=== PATIENT | male | born 1940 | race Caucasian/White ===

== ENCOUNTER 2018-12-29 03:11 | Inpatient (IN) | payer OTHER, MEDICARE ==
[~2018-12-29] VITALS: Ht 165.1 cm; Wt 74.5 kg
[2018-12-29 03:39] LABS: PCO2 Arterial 57.3 mmHg (35-45); pH Blood Arterial 7.27 (7.35-7.45)
[2018-12-29 03:40] LABS: PO2 Arterial 205 mmHg (80-100)
[2018-12-29 03:53] LABS: BASOPHILS ABSOLUTE AUTO 0.02 K/mm3 (0.00-0.23); BASOPHILS PERCENT AUTO 0 % (0-2); EOSINOPHILS PERCENT AUTO 0 % (0-6); Hematocrit 47.7 % (37.0-53.0); Hemoglobin 15.2 g/dL (13.5-17.5); IMMATURE GRAN ABSOLUTE AUTO 0.17 K/mm3 (0.00-0.10); IMMATURE GRAN PERCENT AUTO 1 % (0-1); LYMPHOCYTES ABSOLUTE AUTO 0.56 K/mm3 (0.84-5.20); LYMPHOCYTES PERCENT AUTO 3 % (21-46); MONOCYTES ABSOLUTE AUTO 1.67 K/mm3 (0.16-1.47); MONOCYTES PERCENT AUTO 9 % (4-13); Mean Corpuscular HGB 29.4 pg (26.0-34.0); Mean Corpuscular HGB Conc 31.9 g/dL (31.5-36.5); Mean Corpuscular Volume 92 fL (80-100); Mean Platelet Volume 10.6 fL (9.1-12.4); NEUTROPHILS ABSOLUTE AUTO 15.63 K/mm3 (1.96-9.15); NEUTROPHILS PERCENT AUTO 87 % (41-73); Platelet Count 243 K/mm3 (150-400); RDW Standard Deviation 44.8 fL (35.1-46.3); Red Blood Cell Count 5.17 M/mm3 (4.30-5.90); White Blood Cell Count 18.05 K/mm3 (4.00-11.30)
[2018-12-29 04:07] LABS: Source, Urine Catheter
[2018-12-29 04:09] LABS: Bilirubin, Urine Neg (Neg); Blood, Urine 3+ (Neg); Glucose Qualitative, Urine Neg (Neg); Ketones, Urine Neg (Neg); Leukocyte Esterase, Urine Neg (Neg); Nitrite, Urine Neg (Neg); Protein, Urine 2+ (Neg); Urobilinogen, Urine NORM (Normal)
[2018-12-29 04:10] LABS: Alanine Aminotransfer (ALT/SGP 57 U/L (12-78); Albumin, Blood 3.7 g/dL (3.4-5.0); Albumin/Globulin Ratio 1.1 (0.8-1.8); Alk Phos 70 U/L (50-136); Anion Gap 7 mmol/L (6-16); Aspartate Aminotrans (AST/SGOT 46 U/L (12-37); Bilirubin, Total 0.4 mg/dL (0.1-1.0); Blood Urea Nitrogen 26 mg/dL (8-24); Bun/Creatinine Ratio 27.7 (12.0-20.0); CO2, Blood 30 mmol/L (21-32); Calcium, Blood 8.4 mg/dL (8.5-10.1); Chloride, Blood 95 mmol/L (98-108); Creatinine, Blood 0.94 mg/dL (0.60-1.20); Globulin, Blood 3.5 g/dL (2.2-4.0); Glomerular Filtration Rate >60 (60-); Glucose, Blood 191 mg/dL (70-99); Potassium, Blood 4.6 mmol/L (3.5-5.5); Sodium, Blood 132 mmol/L (136-145); Total Protein, Blood 7.2 g/dL (6.4-8.2); Troponin I 0.036 ng/mL (0.000-0.040)
[2018-12-29 04:10] LABS: Appearance, Urine Clear (Clear); Color, Urine Yellow (P-Yellow)
[2018-12-29 04:16] LABS: Bacteria Not Seen /hpf; Squamous Epithelial Cells Rare /hpf (Few); White Blood Cells, Urine Rare /hpf (0-5)
[2018-12-29] MEDS ORDERED: Hydrochloroth12.5 MG PO (05:50)
[2018-12-29] MEDS ORDERED: AMLO10 PO (05:50)
--- NOTE | 2018-12-29 07:27 | NUR ---
ASSUMED PT CARE/END OF SHIFT SUMMARY ASSUMED PT CARE FROM RILEY DOMINGUEZ. PT ARRIVED ON UNIT S/P CHEST TUBE PLACEMENT SECONDARY TO PNEUMOTHORAX TO LEFT LOBE. PT INTUBATED AND SEDATED WITH PROPOFOL AT 15MCG/KG/MIN UPON ARRIVAL; INCREASED TO 25MCG/MIN. VENT SETTINGS: AC 14, TV 450, PEEP 5, FIO2 50%; NON-PRODUCTIVE COUGH. CHEST TUBE TO -20CM. CONTINUOUS BUBBLING NOTED TO SUCTION CHAMBER, NO FLUCTUATION NOTED TO WATER SEAL CHAMBER, NO CREPITUS NOTED AROUND INSERTION SITE; DRESSING IS CDI AND CHEST TUBE CANISTER IS SECURED/TAPED TO FLOOR. PT HAS BEEN NOTED TO HAVE FREQUENT ECTOPI; BIGEMINY, PVC'S, AND PAC'S; HR 90-100'S. FREEMAN TEMP IN PLACE; AFEBRILE 97.0. PATENT AND DRAINING TO GRAVITY; CLEAR, TEE COLORED URINE. FAMILY AT BEDSIDE AND VERY EMOTIONAL. REPORT HANDED OFF TO RILEY BURT.
--- NOTE | 2018-12-29 08:15 | NUR ---
ASSESSMENT- PT SEDATED WITH PROPOFOL AT 30 MCG/KG/MIN, COUGHING, RESPIRATORY RATE INCREASED. REACHES FOR ETT WHEN REPOSITIONED AND UNRESTRAINED, NO RESPONSE TO COMMANDS. INCREASED PROPOFOL FOR SEDATION/VENT TOLERANCE TO 40 MCG/KG/MIN WITH IMPROVEMENT. OGT PLACED WITH AIR BOLUS AUSCULTATED OVER ABDOMEN, RETURN OF YELLOW BILE DRAINAGE, TO LIS. ABDOMEN SOFT. NSR-ST WITH PACS, PVCS. SBP 90-110'S. 2 PIV INTACT, 3RD SITE PLACED. NS AT 75 CC/HR. LEFT CHEST INTACT TO A[facility] DRAINAGE, NO AIR LEAK NOTED, DDI, NO CREPITUS FELT. UO VIA FREEMAN ADEQUATE. CLEAR YELLOW URINE. DR. SIERRA HERE. FAMILY AT BEDSIDE, UPDATED AND QUESTIONS ANSWERED. BILATERAL WRIST RESTRAINTS FOR SAFETY.
--- NOTE | 2018-12-29 08:52 | NUR ---
This student nurse has permission to access patient information.
--- NOTE | 2018-12-29 08:56 | NUR ---
DR. GALVAN HERE-UDPATED
--- NOTE | 2018-12-29 11:25 | NUR ---
DR. GALVAN AT BEDSIDE, DISCUSSED PLAN OF CARE WITH PT'S FAMILY. PROPOFOL ON HOLD-PT AWAKE, ABLE TO OPEN EYES, FOLLOW BRIEF COMMANDS. CHANGED TO PS 10/PEEP 5, TIDAL VOLUNES 300'S, RR 40 BPM. PT UNCOMFORTABLE, ATTEMPTING TO SIT UP. EXPLAINED PLAN OF CARE. PT EXTUBATED TO NASAL CANNULA, RESP RATE 50 BPM, STATES SOB. ABLE TO ANSWER QUESTIONS. C/O "ALL OVER PAIN" RX WITH FENTANYL. CHANGED TO BIPAP 02/10, RESP RATE NOW 34 BPM, SINUS TACH DECREASED FROM 110'S TO 104. RESTRAINTS OFF. LUNGS WITH RHONCHI T/O. CHEST TUBE INTACT TO ATRIUM, NO AIR LEAK INDICATED
--- NOTE | 2018-12-29 12:52 | NUR ---
PT C/O NEEDING TO GET UP, EXPLAINED PLAN OF CARE, PETE. FAMILY AT BEDSIDE, UPDATED ON CONDITION. PT REPOSITIONED, SLEEPING NOW. RESP RATE 26 BPM, TOLERATING BIPAP
--- NOTE | 2018-12-29 13:31 | NUR ---
AWAKE, ALERT, COOPERATIVE. TOOK BIPAP OFF, TOLERATING NASAL CANNULA. TALKATIVE. ENCOURAGED TO REST. C/O SEVERE PAIN LEFT CHEST TUBE SITE-REPOSITIONED AND PAIN RX GIVEN WITH IMPROVEMENT.
--- NOTE | 2018-12-29 14:05 | NUR ---
Echocardiogram completed.
--- NOTE | 2018-12-29 14:37 | NUR ---
C/O PAIN LEFT CHEST-UNRELIEVED BY IV FENTANYL. NOTIFIED DR. GALVAN-PO RX GIVEN. PT SITTING UP IN BED, TALKATIVE WITH FAMILY. TACHYPNEIC BUT STATES RESPIRATIONS BETTER. ENCOURAGED TO REST. HEARTRATE 100'S
--- NOTE | 2018-12-29 14:42 | NUR ---
BIPAP ON PER REQUEST, PT TRYING TO SLEEP NOW.
[2018-12-29 16:20] LABS: Anion Gap 8 mmol/L (6-16); Blood Urea Nitrogen 21 mg/dL (8-24); Bun/Creatinine Ratio 34.1 (12.0-20.0); CO2, Blood 26 mmol/L (21-32); Calcium, Blood 8.6 mg/dL (8.5-10.1); Chloride, Blood 100 mmol/L (98-108); Creatinine, Blood 0.62 mg/dL (0.60-1.20); Glomerular Filtration Rate >60 (60-); Glucose, Blood 147 mg/dL (70-99); Magnesium, Blood 2.4 mg/dL (1.6-2.4); Phosphorus, Blood 2.8 mg/dL (2.5-4.9); Potassium, Blood 4.5 mmol/L (3.5-5.5); Sodium, Blood 134 mmol/L (136-145)
[2018-12-29 16:32] LABS: PCO2 Arterial 40.7 mmHg (35-45); PO2 Arterial 87.9 mmHg (80-100); pH Blood Arterial 7.45 (7.35-7.45)
--- NOTE | 2018-12-29 17:01 | NUR ---
LABS CALLED TO DR. GALVAN-WILL REVIEW. PT RESTING WITHOUT COMPLAINTS. FAMILY AT BEDSIDE. VSS, RESPIRATORY RATE 26 BPM. ABG STABLE.NS AT 75 CC/HR TO FINISH LITER. UO GOOD VIA FREEMAN
--- NOTE | 2018-12-29 17:52 | NUR ---
PT AWAKE, REPOSITIONED, ASSISTED WITH MOVING. DENIES PAIN. CHANGED TO NASAL CANNULA. RESP RATE AT 32 BPM, ST 90'S
--- NOTE | 2018-12-29 20:02 | NUR ---
ASSUMED CARE RECEIVED REPORT FROM RILEY BURT. PT IS LYING IN BED ASLEEP, SLIGHTLY TACHYPNEIC WITH A RATE OF 24. BEFORE SLEEP, PT WAS ALERT AND ORIENTED X 4. HE IS GETTING 4 LPM OF O2 VIA NC WITH SAT'S IN THE UPPER 90'S. HE HAS A CHEST TUBE IN HIS LEFT PLEURAL SPACE, THAT HAS TIDLING AND IS HOOKED UP TO SUCTION. THERE IS NO AIR LEAK PRESENT, AND THE SITE AT THE LEFT CHEST WALL IS CDI. HE ALSO HAS A FREEMAN THAT IS PATENT AND HANGING TO GRAVITY. BED IS LOW AND LOCKED. CALL LIGHT WITHIN REACH. AT BEDSIDE.
--- NOTE | 2018-12-29 22:58 | NUR ---
CHEST TUBE AIR LEAK AFTER WALKING IN THE ROOM TO MEDICATE PATIENT FOR PAIN, HE STATES HE HAS HAD A COUGHING FIT THAT HAD CAUSED SOME PAIN. I NOTICED ON THE CHEST TUBE THERE WAS AN AIR LEAK IN THE WATER SEAL CHAMBER, THAT WAS NOT PRESENT AT THE START OF SHIFT. WE REINFORCED THE TUBE CONNECTION, BUT THAT DID NOT CHANGE ANYTHING, BESIDES IMPROVE THE TIDELING. THEN WE STERILELY REDRESSED THE SITE OF INSERTION. THE SITE LOOKED CDI/WNL, NO SIGNS OF CREPITUS IN THE SURROUNDING AREA. AFTER COMPLETION OF REDRESSING THE SITE, THERE WAS STILL NO CHANGE IN THE WATER SEAL CHAMBER. PT HAS MAINTAINED SATS ON THE NC, AND STATES THAT HIS WORK OF BREATHING HAS DECREASED SINCE EARLIER IN THE DAY, AND STATES THAT HE FEELS MUCH BETTER. WILL CONTINUE TO MONITOR AND PASS ON TO DAY SHIFT.
[2018-12-30 03:22] LABS: Hematocrit 44.2 % (37.0-53.0); Hemoglobin 14.5 g/dL (13.5-17.5); Mean Corpuscular HGB 29.2 pg (26.0-34.0); Mean Corpuscular HGB Conc 32.8 g/dL (31.5-36.5); Mean Platelet Volume 10.4 fL (9.1-12.4); Platelet Count 196 K/mm3 (150-400); RDW Coefficient Variation 13.2 % (11.7-14.2); RDW Standard Deviation 43.2 fL (35.1-46.3); Red Blood Cell Count 4.97 M/mm3 (4.30-5.90); White Blood Cell Count 15.78 K/mm3 (4.00-11.30)
[2018-12-30 03:29] LABS: Mean Corpuscular Volume 89 fL (80-100)
[2018-12-30 03:42] LABS: Alanine Aminotransfer (ALT/SGP 48 U/L (12-78); Albumin, Blood 3.2 g/dL (3.4-5.0); Albumin/Globulin Ratio 1.1 (0.8-1.8); Alk Phos 59 U/L (50-136); Anion Gap 3 mmol/L (6-16); Aspartate Aminotrans (AST/SGOT 29 U/L (12-37); Bilirubin, Total 0.7 mg/dL (0.1-1.0); Blood Urea Nitrogen 15 mg/dL (8-24); Bun/Creatinine Ratio 23.3 (12.0-20.0); CO2, Blood 31 mmol/L (21-32); Calcium, Blood 8.4 mg/dL (8.5-10.1); Chloride, Blood 102 mmol/L (98-108); Creatinine, Blood 0.64 mg/dL (0.60-1.20); Globulin, Blood 2.9 g/dL (2.2-4.0); Glomerular Filtration Rate >60 (60-); Glucose, Blood 144 mg/dL (70-99); Potassium, Blood 4.6 mmol/L (3.5-5.5); Sodium, Blood 136 mmol/L (136-145); Total Protein, Blood 6.1 g/dL (6.4-8.2)
--- NOTE | 2018-12-30 06:38 | NUR ---
SHIFT SUMMARY PT SLEPT MAJORITY OF NIGHT. HE IS ON 4L NC, AND HAS BIPAP NEEDED FOR INCREASED WORK OF BREATHING, SOB, AND LOW O2 SATS. HAS NOT NEEDED IT ALL SHIFT. SAT'S MAINTAINED IN 93-95% RANGE. HE HAS A CHEST TUBE IN THE LEFT LATERAL THORAX, THAT STARTED SHIFT TIDELING WITH NO BUBLING IN WATER SEAL CHAMBER, THEN FOR MAJORITY OF SHIFT HAS HAD BUBBLING IN THE WATER SEAL CHAMBER (SEE PREVIOUS NOTE FOR DETAILS). PT HAD MINIMAL SEROSANGUINOUS DRAINAGE. PT HAD A FREEMAN THAT WAS PATENT AND DRAINED URINE. NO GTTPS. HE HAS BEEN SIPPING CLEAR LIQUIDS WELL. PT HAS HAD PAIN AT THE CHEST TUBE SITE, WELL IN HIS ABDOMEN. BED LOW AND LOCKED. NO BM OVER NIGHT. CALL LIGHT WITHIN REACH.
--- NOTE | 2018-12-30 07:15 | NUR ---
START OF SHIFT NOTE: RECEIVED REPORT FROM ZAHRA RAYMUNDO RN, ASSUMED CARE, PATIENT IS AWAKE, SITTING UP IN BED, ALERT AND ORIENTED, LUNG SOUNDS DIMINISHED AND COARSE, CHEST TUBE IN LEFT LUNG, BUBBLING IN AIR SEAL NOTED, SEE PAULINO NOTES, AIR LEAK APPEARS TO COME AND GO WITH PATIENT COUGHING, NSR WITH HR IN 90'S, PATIENT IS ON CLEAR LIQUID DIET, BOWEL TONES HYPOACTIVE, PATIENT HAS FREEMAN CATHETER WITH TEMP PROBE, PEDAL PULSES STRONG BILATERAL, PATIENT IS AFEBRILE AND DENIES PAIN WHILE SITTING, HOWEVER, REPORTS THAT PAIN LEVEL GOES TO 3/10 WHEN HE HAS TO COUGH, AT BEDSIDE, CALL LIGHT IN REACH, WILL CONTINUE TO MONITOR.
--- NOTE | 2018-12-30 08:42 | NUR ---
DR. TOBIN IN TO SEE PATIENT, NO NEW ORDERS RECEIVED, PATIENT IS EATING BREAKFAST WITH GOOD APPETITE, NO PROBLEM SWALLOWING AT THIS TIME, AT BEDSIDE, CALL LIGHT IN REACH, WILL CONTINUE TO MONITOR.
--- NOTE | 2018-12-30 09:36 | NUR ---
PATIENT HAS FREQUENT COUGHING SPELLS, AND REPORTS THAT IT HAS BECOME HARDER TO BREATH.
--- NOTE | 2018-12-30 10:24 | NUR ---
DR. BURCH NOTIFIED THAT PATIENT IS BREATHING MORE LABORED, NO NEW ORDERS RECEIVED, WILL SEE PATIENT SHORTLY, RT NOTIFIED, WILL COME GIVE BREATHING TREATMENT, CALL LIGHT IN REACH, WILL CONTINUE TO MONITOR.
--- NOTE | 2018-12-30 11:50 | NUR ---
ATTEMPTED TO GIVE REPORT TO RILEY MIRANDA, ON MEDICAL FLOOR, SHE WILL CALL BACK, SHE IS DOING DISCHARGE AT THIS TIME.
--- NOTE | 2018-12-30 12:30 | NUR ---
PATIENT TO CT SCAN, WITH MOBILE SUCTION AND MONITOR.
--- NOTE | 2018-12-30 13:10 | NUR ---
PATIENT BACK TO ROOM FROM CT, POSITIONED FOR COMFORT, PLACED BACK ON MONITOR AND SUCTION BACK TO WALL SUCTION AND ATRIUM TAPED TO FLOOR.
--- NOTE | 2018-12-30 14:18 | NUR ---
PATIENT IS SLEEPING SOUNDLY AT THIS TIME, VSS, CALL LIGHT IN REACH, WILL CONTINUE TO MONITOR.
--- NOTE | 2018-12-30 15:09 | NUR ---
met with family briefly. to review advance care planning. will return to review with .
--- NOTE | 2018-12-30 15:47 | NUR ---
NOTIFIED BARRY BANUELOS RT, THAT PATIENT HAS CHEST THERAPY ORDERED, ALSO ABBEY HOLLOWAY NOTIFIED.
--- NOTE | 2018-12-30 17:00 | NUR ---
PATIENT RECEIVED ORDERED PERCUSSION CHEST PHYSIOTHERAPY FROM RT, TOLERATED WELL, HOWEVER, AFTER THERAPY ENDED PATIENT WAS OOZING SLIGHTLY FROM INSERTION SITE, DR. BURCH IN TO SEE PATIENT AND CHECK SITE, OLD DRESSING REMOVED, INSERTION SITE SHOWED NO S/S OF INFECTION, DISLODGEMENT, CREPITUS PALPABLE AROUND INSERTION SITE, NEW DRESSING APPLIED, PATIENT TOLERATED WELL, ALSO RECEIVED 50 MCG OF FENTANYL FOR 5/10 PAIN, GOWN CHANGED, SPONGE BATH, PATIENT REPOSITIONED AND NEW HENRY PLACED, AND DAUGHTER AT BEDSIDE, PATIENT EATING DINNER, CALL LIGHT IN REACH, WILL CONTINUE TO MONITOR.
--- NOTE | 2018-12-30 17:40 | NUR ---
SHIFT SUMMARY NOTE: NO ACUTE EVENTS DURING THIS SHIFT, PATIENT WAS AFEBRILE THIS MORNING AND NOW HAS A LOW GRADE TEMP OF 99.5, DR. BURCH AWARE, PATIENT HAS TEMP FREEMAN IN, WITH GOOD URINE OUTPUT, PATIENT IS ALERT AND ORIENTED, HAS FREQUENT PRODUCTIVE COUGHING SPELLS, BUT REPORTED INCREASED WORK OF BREATHING EARLY ON DURING SHIFT, CT SCAN ORDERED AND MUCOUS PLUG IDENTIFIED, PATIENT HAS PERCUSSION ORDER THREE TIMES A DAY, AND RECEIVED FIRST TREATMENT THIS AFTERNOON, DRESSING AROUND CHEST TUBE INSERTION SITE WAS CHANGED D/T LEAKAGE, DR. BURCH AWARE, AM LOVENOX TOMORROW TO BE HELD, PATIENT RECEIVED FENTANYL 50 MCG IV TWICE, ONCE BEFORE CT SCAN AND SECOND RIGHT AFTER PERCUSSION TREATMENT, PATIENT NOW ON SOFT DIET, EATING WITH GOOD APPETITE, AND DAUGHTER AT BEDSIDE, FOR DETAILS SEE SHIFT ASSESSMENT DOCUMENTATION AND NURSES NOTES, CALL LIGHT IN REACH, WILL CONTINUE TO MONITOR, AND GIVE REPORT TO ONCOMING GLASS MAKER.
--- NOTE | 2018-12-30 19:00 | NUR ---
ASSUMED CARE OF PT, BEDSIDE REPORT RECEIVED. PT IS RESTING QUIETLY RECLINING IN BED AND VISITING WITH FAMILY AT BEDSIDE. HE IS ALERT AND ORIENTED X 3, DENIES CP/PRESSURE, DENIES INCREASING SOB/DYSPNEA ALTHOUGH STATES THAT HIS BREATHING, WHILE IT DOES NOT HURT, "IT'S ANNOYING." HE DOES STATE THAT HE HAS 4/10 SHARP PAIN AT CHEST TUBE INSERTION SITE TO LEFT CHEST THAT WORSENS WITH CHEST PHYSIOTHERAPY AND HE STATES THAT HE IS SCHEDULED FOR 1 MORE SESSION TONIGHT. CHEST TUBE DRESSING IS CDI, SMALL AMOUNT OF CREPITUS IS NOTED AT SUPERIOR ASPECT OF DRESSING, PER DAY SHIFT RN, THIS HAS BEEN STABLE, GENTLE BUBBLING IS NOTED IN PLEUROVAC, SANGUINOUS DRAINAGE IS NOTED, WILL MONITOR. HE IS MAINTAINING SATS WITH OXYGEN AT 4 L/MIN VIA NC, NO VISIBLE INCREASED WORK OF BREATHING WHILE AT REST. HEART RATE IRREGULAR AT THIS TIME SINUS WITH BOTH PVCS AND PACS NOTED, PRESSURE MAINTAINING, PULSES ARE FULL X 4, SKIN IS PWD, TRACE ANKLE EDEMA IS NOTED. ABD SOFT, HYPOACTIVE BOWEL TONEX X4, NO GRIMACING WITH LIGHT PALPATION, DENIES N/V. TEMP PROBE FREEMAN REMAINS IN PLACE, READING TEMP 100.2 AT THIS TIME, PT DOES NOT FEEL FEBRILE TO THE TOUCH, TEMPORAL TEMP 98.1 AT THIS TIME, WILL MONITOR.
--- NOTE | 2018-12-30 21:47 | NUR ---
WITH HOLDING CPT, PT HAS BLOOD IN CHEST TUBING
[2018-12-31 03:09] LABS: BASOPHILS ABSOLUTE AUTO 0.02 K/mm3 (0.00-0.23); BASOPHILS PERCENT AUTO 0 % (0-2); EOSINOPHILS ABSOLUTE AUTO 0.01 K/mm3 (0.00-0.68); EOSINOPHILS PERCENT AUTO 0 % (0-6); Hematocrit 42.1 % (37.0-53.0); Hemoglobin 13.6 g/dL (13.5-17.5); IMMATURE GRAN ABSOLUTE AUTO 0.07 K/mm3 (0.00-0.10); IMMATURE GRAN PERCENT AUTO 0 % (0-1); LYMPHOCYTES ABSOLUTE AUTO 0.78 K/mm3 (0.84-5.20); LYMPHOCYTES PERCENT AUTO 5 % (21-46); MONOCYTES ABSOLUTE AUTO 1.58 K/mm3 (0.16-1.47); MONOCYTES PERCENT AUTO 9 % (4-13); Mean Corpuscular HGB 29.3 pg (26.0-34.0); Mean Corpuscular HGB Conc 32.3 g/dL (31.5-36.5); Mean Corpuscular Volume 91 fL (80-100); Mean Platelet Volume 10.4 fL (9.1-12.4); NEUTROPHILS ABSOLUTE AUTO 14.97 K/mm3 (1.96-9.15); NEUTROPHILS PERCENT AUTO 86 % (41-73); Platelet Count 188 K/mm3 (150-400); RDW Coefficient Variation 13.2 % (11.7-14.2); RDW Standard Deviation 44.2 fL (35.1-46.3); Red Blood Cell Count 4.64 M/mm3 (4.30-5.90); White Blood Cell Count 17.43 K/mm3 (4.00-11.30)
[2018-12-31 03:26] LABS: Anion Gap 4 mmol/L (6-16); Blood Urea Nitrogen 23 mg/dL (8-24); Bun/Creatinine Ratio 37.2 (12.0-20.0); CO2, Blood 30 mmol/L (21-32); Calcium, Blood 8.1 mg/dL (8.5-10.1); Chloride, Blood 103 mmol/L (98-108); Creatinine, Blood 0.62 mg/dL (0.60-1.20); Glomerular Filtration Rate >60 (60-); Glucose, Blood 171 mg/dL (70-99); Potassium, Blood 4.7 mmol/L (3.5-5.5); Sodium, Blood 137 mmol/L (136-145)
--- NOTE | 2018-12-31 06:20 | NUR ---
DYSPNEA, HYPOXIA [phone] CALLED TO ROOM FOR INCREASED DIFFICULTY BREATHING FOLLOWING PROLONGED EPISODE OF COUGHING. PT IS NOTED SITTING UPRIGHT IN TRIPOD POSITION IN BED WITH MARKED INCREASE IN WORK OF BREATHING. RESP RATE UPPER 30S ON ARRIVAL, EXP WHEEZES ARE NOTED TO RIGHT, ABSENT LUNG SOUNDS ON LEFT, CHEST TUBE IS NO LONGER FLUCTUATING WITH RESPIRATIONS, SMALL AMOUNT OF BLEEDING IS NOTED FROM UNDER DRESSING AT INSERTION, PT OXYGEN SATURATION IS NOTED MID 80S AND DECREASING. NASAL CANNULA IS IN PLACE ON ARRIVAL TO ROOM AND RT IS AT BEDSIDE, FLOW RATE INCREASED TO 4 L/MIN VIA NC, SATS CONTINUE TO DECLINE, CHANGED TO OXYMIZER MASK AT 15 L/MIN AND SATS INITIALLY STABILIZE HOWEVER THEN CONTINUE TO DECLINE, NONREBREATHER MASK APPLIED WITH OXYGEN AT 15 L/MIN, SATS INITIALLY INCREASE TO 89-90% HOWEVER BEGIN TO DECLINE, AM CXR DONE AND CALL PLACED TO DR BURCH. ORDERS RECEIVED FOR HIGH FLOW OXYGEN AND STAT READ ON CXR. PT SATS BEGIN TO IMPROVE ON HIGH FLOW OXYGEN UP TO 90% DR BURCH NOTIFIED OF CXR REPORT, ORDERS RECEIVED TO PLACE CHEST TUBE TO WATER SEAL AND TITRATE OXYGEN DOWN TOLERATED, PT SATS AT THIS TIME ARE LOW 90S AND CONTINUE TO IMPROVE. PT STATES THAT HIS BREATHING FEELS MUCH IMPROVED. SPOUSE REMAINS AT BEDSIDE.
--- NOTE | 2018-12-31 07:10 | NUR ---
START OF SHIFT NOTE: RECEIVED REPORT FROM SERENITY BETANCOURT, RN, ASSUMED CARE, PATIENT IS AWAKE, ALERT AND ORIENTED, ON HIFLO 30L/MIN, CHEST TUBE TO WATER SEAL AT 0620 THIS MORNING, NSR/ST WITH KELLE IN 90'S, SBP'S IN UPPER 110'S TO 140'S, O2 SATURATION IN MID TO UPPER 90'S, BOWEL TONES HYPOATIVE, TEMP FREEMAN IN PLACE WITH GOOD URINE OUTPUT, PATIENT IS ABLE TO REPOSITION SELF IN BED, AT BEDSIDE, NOC SHIFT REPORTED THAT RUBEN RT, REFUSED TO DO PERCUSSION ORDERED BY DR. BURCH, AM RT, BERTA, NOTIFIED, WILL DO PERCUSSION THIS MORNING, PATIENT DENIES PAIN, AFEBRILE, CALL LIGHT IN REACH, WILL CONTINUE TO MONITOR.
--- NOTE | 2018-12-31 07:42 | NUR ---
PATIENT WAS PREMEDICATED WITH FENTANYL 50 MCG FOR PERCUSSION SESSION, RT IN TO DO CHEST PHYSIOTHERAPY, PATIENT TOLERATING WELL, O2 SATS IN UPPER 90'S, BREAKFAST GIVEN, CALL LIGHT IN REACH, WILL CONTINUE TO MONITOR.
--- NOTE | 2018-12-31 08:29 | NUR ---
IN TO SEE PATIENT, NO NEW ORDERS RECEIVED.
--- NOTE | 2018-12-31 08:36 | NUR ---
DR. GARCIA IN TO SEE PATIENT, UPDATE PROVIDED, NEW ORDERS RECEIVED.
--- NOTE | 2018-12-31 10:08 | NUR ---
PATIENT CONTINUES ON WATER SEAL FOR CHEST TUBE, PATIENT UP TO CHAIR WITH 2 ASSIST, C/O SLIGHT "WOOZINESS", BUT RESOLVED QUICK, PATIENT ENCOURAGED TO USE FLUTTER VALVE, CALL LIGHT IN REACH, WILL CONTINUE TO MONITOR.
--- NOTE | 2018-12-31 11:30 | NUR ---
PATIENT RETURNED TO BED AFTER ABOUT TWO HOURS UP IN CHAIR, PATIENT TOLERATED FAIR, AMBULATED FROM CHAIR TO BED WITH WALKER AND TWO ASSIST, C/O SOB WITH THIS EXERTION, PLACED BRIEFLY ON NRB AT 15L, REMAINS ON HIFLO AT 50 % 30L/MIN, DAUGHTER AT BEDSIDE, CALL LIGHT IN REACH, WILL CONTINUE TO MONITOR.
--- NOTE | 2018-12-31 14:00 | NUR ---
PATIENT ATTEMPTED TO HAVE BOWEL MOVEMENT, HAD NOT GONE FOR A FEW DAYS, UNABLE TO GO EXCEPT FOR SOME GAS, DR. BURCH NOTIFIED, NEW ORDERS RECEIVED.
--- NOTE | 2018-12-31 17:10 | NUR ---
Clinical Visit: Pt sitting up in bed. He has a dinner tray in front of him, but he states that he is not hungry. He believes that the hospital gives him too much food. and daughter at bedside, both report that he looks better than he had before. Denies pain, nausea at this time. He is slightly short of breath with airvo in place, but able to speak 4-5 words at a time. He recovers his breath easily. He feels much better after having a bowel movement. He states that he "put it off" due to humiliation related to hospital care. He is joking with his family and making them laugh. No significant concerns at this time, other than missing his dogs. Sruthi reports that pt is clearing mucus plugging and improving. No concerns. Will remain available.
--- NOTE | 2018-12-31 17:38 | NUR ---
SHIFT SUMMARY REPORT: NO ACUTE EVENTS DURING THIS SHIFT, PATIENT CONTINUES ON HIFLO 35 L/MIN WITH 35 % FiO2, RECEIVED CHEST PHYSIOTHERAPY PERCUSSION TWICE DURING THIS SHIFT, WAS UP TO CHAIR FOR ABOUT 2 HOURS THIS MORNING, ALSO RECEIVES ACETYLCYSTENE VIA INHALER QUID, PATIENT IS STARTING TO COUGH UP THICK STICKY SPUTUM, USES FLUTTER VALVE APPROPRIATELY, CHEST TUBE TO WATER SEAL, AND CHEST XRAY SHOWS LEFT LUNG FULLY INFLATED, POSSIBLE REMOVAL TOMORROW, PATIENT IS ALERT AND ORIENTED, SR/ST, HR IN 90'S SBP'S FROM 110'S TO 160'S DEPENDING ON ACTIVITY AND WORK OF BREATHING, PATIENT ALSO HAS NRB MASK AT BEDSIDE TO USE AFTER COUGHING SPELLS, O2 SATURATION IS CONSISTENTLY BETWEEN 91 AND 95 %, EATING WITH FAIRLY GOOD APPETITE, HAD ONE MEDIUM SOFT BM DURING THIS SHIFT, TEMP FREEMAN CATHETER REMAINS IN PLACE WITH GOOD URINE OUTPUT, FOR DETAILS SEE SHIFT ASSESSMENT DOCUMENTATION AND NURSES NOTES, CALL LIGHT IN REACH, WILL CONTINUE TO MONITOR AND GIVE REPORT TO ONCOMING ENGRAVER AUTOMATIC.
--- NOTE | 2018-12-31 22:16 | NUR ---
Sevier of Care: Care assumed at 1900hr. Patient alert and oriented x4, sitting upright in bed, visiting with family. Denies pain or discomfort. Denies dyspnea/SOB while at rest. C/o mild SOB with activity in bed, but quickly recovers with rest. Currently on Airvo NC, at 35L/min, 35% FiO2, O2-92-94%. Chest tube to lt lateral chest wall, to water seal. No tidaling noted, no air leak noted. Small amounts of serosanguineous drainage noted in tube. Chest tube insertion site/dressing clean, dry, and intact. Bilateral peripheral IV's patent and intact, SL at this time. Will continue to monitor for pain, safety, comfort.
[2019-01-01 03:32] LABS: BASOPHILS ABSOLUTE AUTO 0.01 K/mm3 (0.00-0.23); BASOPHILS PERCENT AUTO 0 % (0-2); EOSINOPHILS ABSOLUTE AUTO 0.01 K/mm3 (0.00-0.68); EOSINOPHILS PERCENT AUTO 0 % (0-6); Hemoglobin 13.4 g/dL (13.5-17.5); IMMATURE GRAN ABSOLUTE AUTO 0.11 K/mm3 (0.00-0.10); IMMATURE GRAN PERCENT AUTO 1 % (0-1); LYMPHOCYTES ABSOLUTE AUTO 0.85 K/mm3 (0.84-5.20); LYMPHOCYTES PERCENT AUTO 6 % (21-46); MONOCYTES ABSOLUTE AUTO 1.01 K/mm3 (0.16-1.47); MONOCYTES PERCENT AUTO 7 % (4-13); Mean Corpuscular HGB 28.7 pg (26.0-34.0); Mean Corpuscular HGB Conc 31.9 g/dL (31.5-36.5); Mean Corpuscular Volume 90 fL (80-100); Mean Platelet Volume 10.7 fL (9.1-12.4); NEUTROPHILS PERCENT AUTO 87 % (41-73); Platelet Count 177 K/mm3 (150-400); RDW Coefficient Variation 13.2 % (11.7-14.2); RDW Standard Deviation 43.8 fL (35.1-46.3); Red Blood Cell Count 4.67 M/mm3 (4.30-5.90); White Blood Cell Count 15.29 K/mm3 (4.00-11.30)
[2019-01-01 03:54] LABS: Anion Gap 4 mmol/L (6-16); Blood Urea Nitrogen 24 mg/dL (8-24); Bun/Creatinine Ratio 41.6 (12.0-20.0); CO2, Blood 30 mmol/L (21-32); Calcium, Blood 8.3 mg/dL (8.5-10.1); Chloride, Blood 102 mmol/L (98-108); Creatinine, Blood 0.58 mg/dL (0.60-1.20); Glomerular Filtration Rate >60 (60-); Glucose, Blood 167 mg/dL (70-99); Potassium, Blood 5.1 mmol/L (3.5-5.5); Sodium, Blood 136 mmol/L (136-145)
[2019-01-01 05:22] LABS: PCO2 Arterial 46.7 mmHg (35-45); PO2 Arterial 68.5 mmHg (80-100); pH Blood Arterial 7.45 (7.35-7.45)
--- NOTE | 2019-01-01 06:39 | NUR ---
Shift Summary: Patient slept off/on throughout shift. Occasional congested cough, not productive early in shift but then began to produce moderate amounts of thick yellow sputum. Patient c/o mild SOB with positioning in bed, or after coughing, but quickly recovers with rest. Continued on Airvo at 35LPM/35% FiO2 throughout majority of shift, O2-92-96%. Airvo turned up to 40LPM/35% FiO2 late this shift following coughing and c/o SOB. Then found that patient's Airvo tubing had came disconnected, quickly recovered after re-connecting tubing. O2% remained 89-94%, while tubing disconnected. Chest tube to lt lateral wall remains wnl. Tidaling began at approx 0000hr after repositioning and persisted throughout remainder of shift. Chest tube site remains c/d/i, no s/s crepitus noted. Only 20ml serosanguineous drainage noted from chest tube throughout shift. Call light in reach, makes needs known. Will continue to monitor until report to day shift RN.
--- NOTE | 2019-01-01 07:15 | NUR ---
START OF SHIFT NOTE: RECEIVED REPORT FROM RILEY MASON, ASSUMED CARE, PATIENT IS AWAKE AND ALERT AND ORIENTED, CONTINUES ON HIFLO AT 40 L/MIN 36 % FiO2, PATIENT IS SATING AT 98%, LUNG SOUNDS ARE RHONCHERUS/COARSE THROUGHOUT, PATIENT HAS SPUTUM AND IS ABLE TO COUGH UP THICK YELLOW/BLOOD TINGED "STICKY" SPUTUM, O2 SATURATION REMAINS AT 97 % WITH COUGHS, PATIENT STATED HE IS "A LITTLE PANICKY AND ANXIOUS", BECAUSE HE DOES NOT WANT ANOTHER PNEUMOTHORAX, LEFT LATERAL CHEST TUBE IN PLACE TO WATER SEAL, NO AIR LEAK NOTED, INCISION SITE SHOWS NO DRAINAGE, NSR WITH HR IN 80'S/90'S, BLOOD PRESSURES ARE ELEVATED AND PATIENT'S WHO IS IN ROOM ASKED TO HAVE HIS BLOOD PRESSURE MEDS REINSTATED, BOWEL TONES PRESENT IN ALL FOUR QUADRANTS, TEMP FREEMAN IN PLACE, AFEBRILE, PATIENT DENIES PAIN, CALL LIGHT IN REACH, WILL CONTINUE TO MONITOR.
--- NOTE | 2019-01-01 08:06 | NUR ---
PATIENT UP TO CHAIR WITH WALKER AND TWO ASSIST, TOLERATED WELL, O2 SATURATION REMAINED AT 98 %, RT IN TO PERFORM TREATMENT, PATIENT HAS GOOD STRONG PRODUCTIVE COUGH, IN ROOM, CALL LIGHT IN REACH, WILL CONTINUE TO MONITOR.
--- NOTE | 2019-01-01 09:17 | NUR ---
DR. BURCH IN TO SEE PATIENT, NEW ORDERS RECEIVED.
--- NOTE | 2019-01-01 09:30 | NUR ---
DR. TOBIN IN TO SEE PATIENT, NO NEW ORDERS RECEIVED.
--- NOTE | 2019-01-01 10:06 | NUR ---
PT IN TO SEE PATIENT.
--- NOTE | 2019-01-01 10:40 | NUR ---
PT IN TO SEE AND WORK WITH PATIENT, TOLERATED WELL, AMBULATED IN ROOM TWICE, O2 SATURATION STAYED AT 95 %, RETURNED TO CHAIR, PATIENT ASKED FOR BSC, CALL LIGHT IN REACH, WILL CONTINUE TO MONITOR.
--- NOTE | 2019-01-01 12:15 | NUR ---
CHEST TUBE REMOVED BY DR. BURCH WITH ASSIST FROM ALANA LERMA RN, PATIENT TOLERATED WELL.
--- NOTE | 2019-01-01 13:24 | NUR ---
PATIENT CONTINUES UP IN CHAIR, REPORTS THAT HE "FEELS GOOD AND HIS GREAT ATTITUDE IS BACK", ATE SOME OF HIS LUNCH, CALL LIGHT IN REACH, WILL CONTINUE TO MONITOR.
--- NOTE | 2019-01-01 17:46 | NUR ---
SHIFT SUMMARY NOTE: NO ACUTE EVENTS DURING THIS SHIFT, LEFT LATERAL CHEST TUBE WAS REMOVED TODAY AT 12:[address] BURCH AFTER NOON CHEST XRAY SHOWED TOTAL RESOLVE OF PNEUMOTHORAX, PATIENT IS ALERT AND ORIENTED, UP TO CHAIR SINCE BREAKFAST, FEEL "VERY GOOD", OCCASIONAL PRODUCTIVE COUGHING SPELLS, CONTINUES ON HIFLO WITH SETTINGS 32 % FiO2 AT 30 L/MIN, PATIENT AMBULATED AROUND ROOM WITH PHYSICAL THERAPY TWICE, O2 SATURATION REMAINED AT 95 % THE ENTIRE TIME, PATIENT HAD ONE EXTRA LARGE SOFT FORMED BM, FREEMAN CATHETER REMAINS IN PLACE, PATIENT REPORTED URINE RETENTION AT TIMES, HOME BLOOD PRESSURE MEDICATION RESTARTED AND GIVEN, RT CONTINUES WITH ORDERED TREATMENTS, PATIENT RESPONDING WELL, AND DAUGHTER IN ROOM, FOR DETAILS SEE SHIFT ASSESSMENT DOCUMENTATION AND NURSES NOTES, CALL LIGHT IN REACH, WILL CONTINUE TO MONITOR AND GIVE REPORT TO ONCOMING INTERMEDIATE MANAGER.
--- NOTE | 2019-01-01 21:56 | NUR ---
PATIENT ALERT AND ORIENTED X4. SITTING UP IN CHAIR. NO REPORTS OF PAIN OR DISCOMFORT. RAC AND LAC IV SITES ARE CLEAN, PATENT, INTACT. AERVO 30L/MIN, 32% FIO2. FREEMAN PATENT. DENIES DIFFICULTY BREATHING. D/C CHEST TUBE SITE, L LATERAL CHEST, DRESSING IS CLEAN, DRY AND INTACT. NO SIGNS OF CREPITUS OR DRAINAGE. ANA MARIA MCCARTHY SN
--- NOTE | 2019-01-02 06:21 | NUR ---
PATIENT SLEPT OFF AND ON THROUGHOUT THE NIGHT. CONTINUES TO HAVE LUNG CONGESTION. COARSE SOUNDS THROUGHOUT. LOWER LOBES DIMINISHED SOUNDS. CONTINUED DIFFICULTY EXPELLING MUCOUS. AT REST, DOES NOT HAVE DIFFICULTY BREATHING. NO CHANGES TO AIRVO SETTINGS. SITE FROM THE DISCONTINUED LEFT LATERAL CHEST TUBE REMAINS WNL, NO SIGNS OF BLEEDING, DRAINAGE OR CREPITUS. DRESSING REMAINS CLEAN, DRY, INTACT. VITAL SIGNS REMAIN STABLE. PATIENT DENIES ANY PAIN. WILL CONTINUE TO MONITOR AND REPORT TO DAYSNYFT RILEY. ANA MARIA MCCARTHY SN
--- NOTE | 2019-01-02 07:20 | NUR ---
ASSUMED CARE: PT RESTING IN BED, AIRVO IN PLACE RUNNING AT 30L WITH 30% FIO2. NSR AT THIS TIME. FAMILY AT BEDSIDE. NO ACUTE NEEDS OR CONCERNS AT THIS TIME.
[2019-01-02 09:59] LABS: BASOPHILS ABSOLUTE AUTO 0.01 K/mm3 (0.00-0.23); BASOPHILS PERCENT AUTO 0 % (0-2); EOSINOPHILS ABSOLUTE AUTO 0.23 K/mm3 (0.00-0.68); EOSINOPHILS PERCENT AUTO 2 % (0-6); Hemoglobin 13.1 g/dL (13.5-17.5); IMMATURE GRAN ABSOLUTE AUTO 0.07 K/mm3 (0.00-0.10); IMMATURE GRAN PERCENT AUTO 1 % (0-1); LYMPHOCYTES ABSOLUTE AUTO 1.46 K/mm3 (0.84-5.20); LYMPHOCYTES PERCENT AUTO 14 % (21-46); MONOCYTES ABSOLUTE AUTO 1.13 K/mm3 (0.16-1.47); MONOCYTES PERCENT AUTO 11 % (4-13); Mean Corpuscular HGB 29.7 pg (26.0-34.0); Mean Corpuscular HGB Conc 32.8 g/dL (31.5-36.5); Mean Corpuscular Volume 91 fL (80-100); Mean Platelet Volume 10.6 fL (9.1-12.4); NEUTROPHILS PERCENT AUTO 72 % (41-73); Platelet Count 183 K/mm3 (150-400); RDW Coefficient Variation 12.8 % (11.7-14.2); RDW Standard Deviation 42.6 fL (35.1-46.3); Red Blood Cell Count 4.41 M/mm3 (4.30-5.90)
[2019-01-02 10:11] LABS: Anion Gap 8 mmol/L (6-16); Blood Urea Nitrogen 26 mg/dL (8-24); CO2, Blood 29 mmol/L (21-32); Calcium, Blood 8.4 mg/dL (8.5-10.1); Chloride, Blood 98 mmol/L (98-108); Creatinine, Blood 0.57 mg/dL (0.60-1.20); Glomerular Filtration Rate >60 (60-); Glucose, Blood 161 mg/dL (70-99); Potassium, Blood 3.7 mmol/L (3.5-5.5); Sodium, Blood 135 mmol/L (136-145)
--- NOTE | 2019-01-02 11:21 | NUR ---
DR OLSON CAME TO SEE PT AND STATED PCU STATUS IS NOW APPROPRIATE. NOTED PT'S AIRVO AND AWARE OF SETTINGS. AWARE OF DRAINAGE FROM PRIOR CT SITE AND CHANGED DRESSING. APPLIED STERI STRIPS TO SITE SINCE NO SUTURES IN PLACE. GAUZE AND CLEAR DRESSING OVER STERI STRIPS. PARALEGAL AWARE OF CHANGE IN STATUS.
--- NOTE | 2019-01-02 14:04 | NUR ---
REPORT GIVEN TO NATALIA LIN. AWARE THAT PT IS COMING ON AIRVO. FAMILY AT BEDSIDE AND AWARE OF TRANSFER. DENIES NEEDS OR CONCERNS. TRANSFERRED VIA WHEEL CHAIR BY HOSPITAL STAFF.
--- NOTE | 2019-01-02 15:30 | NUR ---
PT TNX'D TO PCU-5 VIA W/C BY CESAR PARSONS AND RT KESHIA FOR RESPIRATORY ASSISTANCE, PT IS ON AIRVO. ALL PT BELONGINGS, MEDS, AND CHART SENT WITH PT.
--- NOTE | 2019-01-02 17:25 | NUR ---
SHIFT SUMMARY RECEIVED PT TO PCU5 FROM ICU VIA W/C. PT TX'D ON AIRVO; PER REPORT 30L 30% FiO2. PT ABLE TO TX TO CHAIR AT BS FROM W/C. P/T TO WHEN PT TX'D AND HAD PT WALKING AROUND BED AND BACK TO CHAIR A COUPLE OF TIMES. PT TOLERATING SHORT WALKS PERIODICALLY, RATHER THAN 1 LONGER WALK. FAMILY TO WITH TX AND LATER WITH PT'S DOG. PT ASKING WHEN TO GET OFF AIRVO AND BE ABLE TO SHOWER. PT TO TALK TO RT THIS EVENING. LUNGS T/O VERY COARSE, ESPECIALLY R LOBES. SPUTUM CX STILL NEEDED; PT REPORTED NPC TO PRESENT. URINAL AT BS. VERY PLEASANT AND CO-OP. DENIED NEEDS AT THIS TIME. CALL LT IN REACH.
--- NOTE | 2019-01-03 01:25 | NUR ---
ASSUMED CARE Assumed care at approx 1915; pt presenting sitting in chair at bedside, RT in room. Pt with coarse lung sounds throughout, speaking with ease, breathing unlabored. VSS, no apparent sign of distress. Pt requesting snack; appears to have appitite coming back. Pt with and grandson at bedside. Pt moved from chair into bed when pt becomes suddenly SOB, enters coughing event, states "I can't breathe!" this RN at bedside. Pt with new wheezes heard throughout lung prasad. RT called for PRN breathing tx and assessment. RT at bedside and pt recieves tx via RT. Post tx, lungs clear and pt breathing with ease. Pt decides to sit in recliner chair for sleep instead of bed. this RN aided in making pt comfortable and supported with pillows. Pt able to rest. currently, pt still sleeping. VS remain stable. No further events noted thus far this shift. Will continue to monitor and provide care per orders.
[2019-01-03 03:39] LABS: BASOPHILS ABSOLUTE AUTO 0.01 K/mm3 (0.00-0.23); BASOPHILS PERCENT AUTO 0 % (0-2); EOSINOPHILS ABSOLUTE AUTO 0.21 K/mm3 (0.00-0.68); EOSINOPHILS PERCENT AUTO 2 % (0-6); Hematocrit 39.7 % (37.0-53.0); Hemoglobin 13.2 g/dL (13.5-17.5); IMMATURE GRAN ABSOLUTE AUTO 0.09 K/mm3 (0.00-0.10); IMMATURE GRAN PERCENT AUTO 1 % (0-1); LYMPHOCYTES ABSOLUTE AUTO 2.02 K/mm3 (0.84-5.20); LYMPHOCYTES PERCENT AUTO 19 % (21-46); MONOCYTES ABSOLUTE AUTO 1.38 K/mm3 (0.16-1.47); MONOCYTES PERCENT AUTO 13 % (4-13); Mean Corpuscular HGB 29.1 pg (26.0-34.0); Mean Corpuscular HGB Conc 33.2 g/dL (31.5-36.5); Mean Platelet Volume 10.5 fL (9.1-12.4); NEUTROPHILS ABSOLUTE AUTO 6.82 K/mm3 (1.96-9.15); NEUTROPHILS PERCENT AUTO 65 % (41-73); Platelet Count 195 K/mm3 (150-400); RDW Coefficient Variation 12.6 % (11.7-14.2); RDW Standard Deviation 40.5 fL (35.1-46.3); Red Blood Cell Count 4.53 M/mm3 (4.30-5.90); White Blood Cell Count 10.53 K/mm3 (4.00-11.30)
[2019-01-03 03:42] LABS: Mean Corpuscular Volume 88 fL (80-100)
[2019-01-03 03:57] LABS: Anion Gap 4 mmol/L (6-16); Blood Urea Nitrogen 24 mg/dL (8-24); Bun/Creatinine Ratio 32.3 (12.0-20.0); CO2, Blood 33 mmol/L (21-32); Calcium, Blood 8.5 mg/dL (8.5-10.1); Chloride, Blood 97 mmol/L (98-108); Creatinine, Blood 0.74 mg/dL (0.60-1.20); Glomerular Filtration Rate >60 (60-); Glucose, Blood 107 mg/dL (70-99); Sodium, Blood 134 mmol/L (136-145)
--- NOTE | 2019-01-03 04:30 | NUR ---
Pt continues to rest comfortably, no further complaints of acute difficulty breathing so far this shift. Pt continues to work to breathe at rest, remains in recliner erect because pt state "i start coughing and can't breathe when I lie back". Pt continues with VSS. Will continue to monitor.
--- NOTE | 2019-01-03 07:46 | NUR ---
Shift Summary No acute declines noted. Events as documented in previous notes. VSS and pt remains on airvo at 30% with no sustained changes in oxygen demand. Pt slept this shift in recliner. Pt with congested cough and coarse lung sounds throughout but improved from begining of shift. Pt voids with urinal at bedside. Grandson in room with pt this shift. R forearm IV removed this shift d/t leaking, LAC remains wnl. Saline locked. o2 saturations >90% - often >95% this shift. He remains alert and oriented, answers questions appropriately, conversing with staff, uses call light to make needs known. No concerns expressed by pt this shift. Hand off given to day RN who assumes care.
--- NOTE | 2019-01-03 17:22 | NUR ---
SHIFT SUMMARY PT ALERT AND ORIENTED. VS STABLE. O2 SATS HAVE REMAINED ABOVE 90% ON 4L HIGH FLOW NC. LS COARSE THROUGHOUT. BP STABLE. HR NSR 90'S. PT COMPLAINED OF PAIN IN HIS LEFT SIDE THAT WAS RELIEVED WITH MEDICAITON ADMINISTRATION. NASAL SPRAY WAS STARTED THIS SHIFT AND PT REPORTS THAT HE IS FINALLY ABLE TO TOLERATE LAYING BACK IN HIS CHAIR WITHOUT A COUGHING SPELL. PT ABLE TO WALK THROUGH THE MILLER THIS SHIFT WITH PHYSICAL THERAPY AND MAINTAIN O2 SATURATION >90%. FAMILY AT BEDSIDE. WILL CONTINUE TO MONITOR AND REPORT TO ONCOMING RN. CALL LIGHT IN REACH. FAMILY AT BEDSIDE.
--- NOTE | 2019-01-04 06:17 | NUR ---
SHIFT SUMMARY Pt with no acute events overnight, VSS, pt breathing easy and unlabored with no coughing episodes at 4L hiflow NC. Pt prefers to sleep in recliner sitting erect as he states it is more comfortable for him. No apparent sign of distress, no acute declines to note. No acute concerns overnight for this pt. Family at bedside this shift. SBA to bathroom x1 this shift; steady but weak gait. pt remains alert and oriented, conversive with staff. No declines or changes from initial shift assessment. Will continue to monitor until day RN assumes care
--- NOTE | 2019-01-04 11:22 | NUR ---
PT ANXIOUS ABOUT DISCHARGING TOO EARLY PT EDUCATED THAT THE WILL EVAL HIM IN THE AM AGAIN BEFORE MAKING A DECISION TO DC. NEEDED MEDS WOULD ALSO BE PROVIDED BEFORE DC. PT MEDICATED WITH XANAX TO ASSIST WITH ANXIETY. WILL CONTINUE TO MONITOR.
--- NOTE | 2019-01-04 17:10 | NUR ---
SHIFT SUMMARY PT SATING IN THE 90S ON 2L VIA HIGH FLOW NC. PT TOLERATING WELL. PT TRIALED LYING ON SIDE IN BY. PT TOLERATED APPROX 10 MIN. PT WAS PLEASANTLY SURPRISED. BARIUM SWALLOW COMPLETED THIS SHIFT. RESULTS PENDING. NO OTHER CHANGES IN ASSESSMENT AT THIS TIME. VSS. WILL CONTINUE TO MONITOR UNTIL TURNOVER IS COMPLETE. PT MEDICATED FOR PAIN 2X THIS SHIFT.
--- NOTE | 2019-01-05 05:55 | NUR ---
SHIFT SUMMARY: 78 Y/O MALE RESTED COMFORTABLY IN LOUNGE CHAIR ALL SHIFT, C/O BACK PAIN RATED 6/10 WITH NORCO 10/325 X 1 TABLET GIVEN TWICE WITH PAIN RELIEF FELT, LEFT UPPER CHEST WOUND DRESSING REMOVED BY THIS NURSE WITH INCISION WELL APPROXIMATED (MEASURES 3 CM WITH THREE 1/4 INCH STERI STRIPES INTACT), LUNG SOUNDS ARE COARSE THROUGHOUT, ALERT AND ORIENTED X 4, CALL LIGHT AT SIDE, DENIES NAUSEA.
--- NOTE | 2019-01-05 10:12 | NUR ---
PT SITTING UP IN CHAIR THIS AM, IN GOOD SPIRITS, STATES HIS PAIN IS OK, BREATHING IS BETTER, BUT STILL FEELS A BIT ROUGH, LUNGS ARE COURSE T/O ON EXP, RESP EVEN AND UNLABORED, HAS A NONPRODUCTIVE COUGH, HRR, TELE IN PLACE RUNNING SR WITH PAC'S AND PVC'S, NO EDMEA NOTED, PPP+2, CAP REFILL <3SEC, VS STABLE, AFEBRILE, IV SITE IS CLEAR AND PATENT, S.L., BTX4, ABD FLAT SOFT NONTENDER, VOIDS WITHOUT DIFF, SKIN HAS DRESSING WHERE HE HAD A CHEST TUBE, JAY LEOS, CALL LIGHT IN REACH.
--- NOTE | 2019-01-05 13:30 | NUR ---
DAUGHTER CALLED NURSE INTO ROOM AND IS CONCERNED ABOUT HIS BREATHING STATES IT IS HARDER, AND HE IS MORE COURSE SHE CAN AUDIBLY HEAR IT. SATS ARE 92% ON 2 LITERS VIA N/C, HE DOES SOUND MORE COURSE THAN THIS AM, CALL TO DR. TOBIN AND ASKED HIM TO COME SEE HIM, HE DID AND SPOKE WITH PULMINARY WHO WILL COME SEE HIM. ALSO SPOKE WITH HI Oswald AND SHE THINKS HE MAY HAVE ASPERATED CONTRAST WHEN HE HAD HIS BARIUM SWALLOW. CALL LIGHT IN REACH.
--- NOTE | 2019-01-05 14:56 | NUR ---
PT NOT BREATHING HARD HE WAS, SPOKE WITH BAYLEE HE THINKS HE MAY HAVE ASPERATED AT LUNCH, BUT IS DOING SOME BETTER NOW, VISITING WITH SINTIA AT THIS TIME. CALL LIGHT IN REACH.
--- NOTE | 2019-01-05 15:22 | NUR ---
Spiritual care visit conducted. Patient immediately shares his frustration about the doctors not being stuck in the hospital with no clear direction as to what is wrong or how they are going to fix him. 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 Patient states that he believes in God but that he never asks anyone including GOd for help. I listen empathically, reinforce helpful attitudes and practices, normalize patient's experience and provide companionship. Patient thanks me for the visit.
--- NOTE | 2019-01-05 18:43 | NUR ---
pt doing ok on his breating, sats are remaining around 92% but has dropped to 88% a few times. he was not able to tolerate going to the bathroom, but did use the bsc, with 02 turned up to 4 while active. after lots of reassurance with his daugter in room encouraging him as well he seems a bit better, but will move him to a room closer to the nurses station. this was passed on the dry pan charger. call light in reach.
--- NOTE | 2019-01-06 08:27 | NUR ---
PT LAYING IN BED AWAKE A/OX3, PLEASANT AND COOPERATIVE WITH CARE, FOLLOWS COMMANDS WELL, DENIES PAIN, STATES HE IS DOING 150% BETTER THAN LAST NIGHT. HE WAS VERY ANXIOUS AND DISCOURAGED LAST NIGHT, HE COUGHED UP A LARGE AMOUNT OF SPUTUM DURRING THE NIGHT AND FEELS THAT HIS AIRWAYS ARE OPEN AND HE CAN MOVE AIR NOW. LUNGS ARE CLEAR IN UPPER FARFAN, COURSE IN MID FIELD AND BASES, RESP EVEN AND UNLABORED, NO COUGH NOTED AT THIS TIME, SPUTUM SAMPLE WAS NOT OBTAINED DURRING THE NIGHT, GAVE HIM A SPECI CUP FOR SPUTUM, HRR, TELE IN PLACE RUNNING SR PER MONITOR, SEE STRIP, NO EDEMA NOTED, PPP+2, CAP REFILL <3SEC, VS STABLE AFEBRILE, IV SITE IS CLEAR AND PATENT, TO RFA, S.L AT THIS TIME, BTX4, ABD FLAT SOFT NONTENDER, REPORT NO BM SINCE IN HOSP WILL GIVE COLACE THIS AM AND GAVE PRUNE JUICE, WILL ASK MD FOR MIRALAX, VOIDS WITHOUT DIFF, SKIN HAS SITE TO LEFT SIDE WITH BANDAIDE FROM JAY ESPINOZA, CALL LIGHT IN REACH.
--- NOTE | 2019-01-06 13:30 | NUR ---
pt doing better with breathing, he is concerned about being constipated, he was given prune juice again and we asked for miralax. this was ordered. he also has a suppos if he wants it. no further needs at this time. call light in reach.
--- NOTE | 2019-01-06 17:38 | NUR ---
pt sitting up in chair, daughter in room visiting. he reports he is have small amounts of bm at a time, and is feeling better. breathing is much better, currently on 2 liters via n/c. call light in reach.
--- NOTE | 2019-01-07 04:27 | NUR ---
SHIFT SUMMARY PT A/O. 1L O2 NC CAN GET SOB C EXERTION. OCCASIONAL PRODUCTIVE CONGESTED SOUNDING COUGH PRODUCING YELLOW SPUTUM BLOOD TINGED AT TIMES. AT [facility] MANAGER REPORTED SVT 12-13BEATS C PVC'S ASYMPTOMATIC TALKING C FAMILY AT THE TIME. AFTER THAT HE WAS NSR C PAC AND PVC'S IN THE 90'S PER [facility] TECH. HE SAID HE USED THE SUPP AT AROUND 2030 AND WAS ABLE TO HAVE SMALL FORMED BM AT ABOUT 2230 AND SAID IT TOOK THE PRESSURE OFF AND HE FELT BETTER. HE WAS ABLE TO DOZE ON AND OFF T/O NIGHT IN RECLINER, RECLINING EXCEPT FOR WHEN HE STARTED TO COUGH HE WOULD SIT UP STRAIGHT. CALL LIGHT IN REACH.
--- NOTE | 2019-01-07 10:15 | NUR ---
PT WALKING PHYS THERAPY IN ROOM TO WALK WITH PATIENT
[2019-01-07] MEDS ORDERED: MUCUS ER600 MG PO (11:11)
[2019-01-07] MEDS ORDERED: MIRALAX17 GM PO (11:15)
[2019-01-07] MEDS ORDERED: OMEPRAZOLE20 M1 PO (11:15)
[2019-01-07] MEDS ORDERED: ALBU90OI INH (11:17)
[2019-01-07] MEDS ORDERED: TIOT18 INH (11:18)
--- NOTE | 2019-01-07 13:16 | NUR ---
NURSING PCU DISCHARGE SUMMARY: Seen by PMD, discharge home d/o received. Pt verbalized understanding of all written and verbal discharge instructions. Rx's called to [facility] pharmacy per pt request. No s/s of acute distress at time of discharge, pt denied any questions/needs. Escorted from unit via w/c accompanied by PCT at approx 1305.
== END 2019-01-07 13:52 | disposition home or self-care (01) | DRG 166 ==
LOC: ER 03:11 → ICUW 04:34 → ICUE 04:34 → PCU 01-02 15:26
PROVIDERS: Emergency Medicine; Internal Medicine; Internal Medicine Critical Care Medicine; Internal Medicine Pulmonary Disease; ADMIT Internal Medicine
PROC: 0BH17EZ Insertion of Endotracheal Airway into Trachea, Via Natural or Artificial Opening (ICD-10-PCS; principal; 2018-12-29)
PROC: 0W9B40Z Drainage of Left Pleural Cavity with Drainage Device, Percutaneous Endoscopic Approach (ICD-10-PCS; 2018-12-29)
PROC: 5A1935Z Respiratory Ventilation, Less than 24 Consecutive Hours (ICD-10-PCS; 2018-12-29)
PROC: 5A09357 Assistance with Respiratory Ventilation, Less than 24 Consecutive Hours, Continuous Positive Airway Pressure (ICD-10-PCS; 2018-12-29)
DX: J96.01 Acute respiratory failure with hypoxia (principal); J93.0 Spontaneous tension pneumothorax; J44.1 Chronic obstructive pulmonary disease with (acute) exacerbation; E87.2 Acidosis; I27.21 Secondary pulmonary arterial hypertension; J40 Bronchitis, not specified as acute or chronic; R09.82 Postnasal drip; K21.9 Gastro-esophageal reflux disease without esophagitis; E87.70 Fluid overload, unspecified; T17.900A Unspecified foreign body in respiratory tract, part unspecified causing asphyxiation, initial encounter; K59.03 Drug induced constipation; T40.605A Adverse effect of unspecified narcotics, initial encounter; Y92.239 Unspecified place in hospital as the place of occurrence of the external cause; Z87.891 Personal history of nicotine dependence
CPT/HCPCS: 31500; 31720; 32551; 36415; 36600; 51702; 71045; 71046; 71250; 74220; 80048; 80053; 81001; 82803; 83735; 83880; 84100; 84484; 85025; 85027; 87070; 87205; 92526; 92610; 93005; 93010; 93308; 93321; 94002; 94640; 94660; 94664; 94667; 94668; 94760; 94761; 94762; 96374-59; 96375-59; 97110; 97116; 97162; 97530; 98960; 99291-25; J1265; J1650; J2250; J2543; J2704; J2920; J2930; J3010; J7030; J7050; J7512

== ENCOUNTER 2019-01-22 14:35 | Inpatient (IN) | payer OTHER, MEDICARE ==
[~2019-01-22] VITALS: Ht 175.3 cm; Wt 77.1 kg
[~2019-01-22 14:35] MED LIST: ALBU90OI INH; AMLO10 PO; MICROZIDE12.5 M1 PO; MIRALAX17 GM PO; MUCUS ER600 MG PO; OMEPRAZOLE20 M1 PO; TIOT18 INH
[2019-01-22 14:59] LABS: BASOPHILS ABSOLUTE AUTO 0.04 K/mm3 (0.00-0.23); BASOPHILS PERCENT AUTO 0 % (0-2); EOSINOPHILS ABSOLUTE AUTO 3.02 K/mm3 (0.00-0.68); EOSINOPHILS PERCENT AUTO 31 % (0-6); Hematocrit 39.7 % (37.0-53.0); Hemoglobin 12.6 g/dL (13.5-17.5); IMMATURE GRAN ABSOLUTE AUTO 0.04 K/mm3 (0.00-0.10); IMMATURE GRAN PERCENT AUTO 0 % (0-1); LYMPHOCYTES ABSOLUTE AUTO 1.55 K/mm3 (0.84-5.20); LYMPHOCYTES PERCENT AUTO 16 % (21-46); MONOCYTES ABSOLUTE AUTO 0.98 K/mm3 (0.16-1.47); MONOCYTES PERCENT AUTO 10 % (4-13); Mean Corpuscular HGB 29.1 pg (26.0-34.0); Mean Corpuscular HGB Conc 31.7 g/dL (31.5-36.5); Mean Corpuscular Volume 92 fL (80-100); NEUTROPHILS ABSOLUTE AUTO 4.08 K/mm3 (1.96-9.15); NEUTROPHILS PERCENT AUTO 42 % (41-73); Platelet Count 281 K/mm3 (150-400); RDW Coefficient Variation 13.7 % (11.7-14.2); RDW Standard Deviation 46.3 fL (35.1-46.3); Red Blood Cell Count 4.33 M/mm3 (4.30-5.90); White Blood Cell Count 9.71 K/mm3 (4.00-11.30)
[2019-01-22 15:08] LABS: Alanine Aminotransfer (ALT/SGP 36 U/L (12-78); Albumin, Blood 3.2 g/dL (3.4-5.0); Albumin/Globulin Ratio 0.9 (0.8-1.8); Alk Phos 94 U/L (50-136); Anion Gap 5 mmol/L (6-16); Aspartate Aminotrans (AST/SGOT 21 U/L (12-37); Bilirubin, Total 0.3 mg/dL (0.1-1.0); Blood Urea Nitrogen 15 mg/dL (8-24); Bun/Creatinine Ratio 22.1 (12.0-20.0); CO2, Blood 31 mmol/L (21-32); Calcium, Blood 8.7 mg/dL (8.5-10.1); Chloride, Blood 106 mmol/L (98-108); Creatinine, Blood 0.68 mg/dL (0.60-1.20); Globulin, Blood 3.5 g/dL (2.2-4.0); Glomerular Filtration Rate >60 (60-); Glucose, Blood 95 mg/dL (70-99); Potassium, Blood 3.8 mmol/L (3.5-5.5); Sodium, Blood 142 mmol/L (136-145); Total Protein, Blood 6.7 g/dL (6.4-8.2)
--- NOTE | 2019-01-22 19:00 | NUR ---
ADMIT NOTE- PT ARRIVED ON MEDICAL FLOOR. CALLED DR OSWALD FOR ORDER FOR CONT OXIMETRY. PT O2 SATS 92% ON 2L VIA NC RESP RATE 24 OR HIGHER, DR JEAN.
[2019-01-22] MEDS ORDERED: Miralax17 GM PO (19:33)
[2019-01-22 22:31] LABS: Adenovirus Not Detected (NOT DETECT); Bordetella pertussis Not Detected (NOT DETECT); Chlamydophila pneumoniae Not Detected (NOT DETECT); Coronavirus 229E Not Detected (NOT DETECT); Coronavirus HKU1 Not Detected (NOT DETECT); Coronavirus NL63 Not Detected (NOT DETECT); Coronavirus OC43 Not Detected (NOT DETECT); Human Metapneumovirus Not Detected (NOT DETECT); Human Rhinovirus/Enterovirus Not Detected (NOT DETECT); Influenza A Not Detected (NOT DETECT); Influenza A/2009-H1 Not Detected (NOT DETECT); Influenza A/H1 Not Detected (NOT DETECT); Influenza A/H3 Not Detected (NOT DETECT); Influenza B Not Detected (NOT DETECT); Mycoplasma pneumoniae Not Detected (NOT DETECT); Parainfluenza Virus 1 Not Detected (NOT DETECT); Parainfluenza Virus 2 Not Detected (NOT DETECT); Parainfluenza Virus 3 Not Detected (NOT DETECT); Parainfluenza Virus 4 Not Detected (NOT DETECT); Respiratory Syncytial Virus Not Detected (NOT DETECT)
--- NOTE | 2019-01-23 05:04 | NUR ---
SHIFT SUMMARY LYING IN SEMI FOWLERS WITH EYES CLOSED. HAS RESTED WELL THIS SHIFT. DENIES PAIN, DISCOMFORT, OR FURTHER NEEDS AT THIS TIME. SAFETY MEASURES IN PLACE. STATES HE IS LOOKING FORWARD TO BEING TRANSFERED TO [facility] TODAY. HAND OFF TO BE GIVEN TO DAY SHIFT RN.
--- NOTE | 2019-01-23 15:04 | NUR ---
PT DISCHARGED VIA COBRA TRANSFER TO [facility]. PT ALERT AND ORIENTED UPON DISCHARGE. PT INDEPENDENT IN ROOM AND SELF TRANSFERED TO [facility] FOR TRANSPORTATION. PT WITH NO SIGNS OF DISTRESS PRIOR TO DISCHARGE. PT ON 1.5L O2 ON DISCHARGE. PT BELONGINGS WITH SPOUSE UPON DISCHARGE. REPORT CALLLED TO NICKOLAS AT [facility].
== END 2019-01-23 14:59 | disposition short-term general hospital (02) | DRG 189 ==
LOC: ER 14:35 → MEDS 17:02
PROVIDERS: Emergency Medicine; ADMIT Internal Medicine
DX: J96.01 Acute respiratory failure with hypoxia (principal); J94.2 Hemothorax; J44.0 Chronic obstructive pulmonary disease with (acute) lower respiratory infection; J44.1 Chronic obstructive pulmonary disease with (acute) exacerbation; J20.9 Acute bronchitis, unspecified; K21.9 Gastro-esophageal reflux disease without esophagitis; I10 Essential (primary) hypertension; Z87.891 Personal history of nicotine dependence
CPT/HCPCS: 0099U; 71046; 80053; 84145; 85025; 87070; 87205; 94640; 94760; 94762; 96374; 96375; 99285-25; J1956; J2920; J2930

== ENCOUNTER 2019-02-18 23:17 | Emergency (ER) | payer OTHER, MEDICARE ==
[~2019-02-18] VITALS: Ht 175.3 cm; Wt 74.8 kg
[~2019-02-18 23:17] MED LIST changes: +Miralax17 GM PO
[2019-02-18 23:50] LABS: Calcium, Ionized (POC) 1.17 mmol/L (1.10-1.46); Chloride (POC) 103 mmol/L (98-108); Creatinine (POC) 0.8 mg/dL (0.8-1.3); Glucose (ISTAT POC) 124 mg/dL (70-99); Hemoglobin (POC) 12.6 g/dL (13.5-17.5); Potassium (POC) 3.8 mmol/L (3.5-5.5); Sodium (POC) 138 mmol/L (135-148); Total CO2 (POC) 30 mmol/L (21-32)
[2019-02-18 23:53] LABS: BASOPHILS ABSOLUTE AUTO 0.05 K/mm3 (0.00-0.23); BASOPHILS PERCENT AUTO 1 % (0-2); EOSINOPHILS ABSOLUTE AUTO 2.31 K/mm3 (0.00-0.68); EOSINOPHILS PERCENT AUTO 29 % (0-6); Hematocrit 40.2 % (37.0-53.0); Hemoglobin 12.6 g/dL (13.5-17.5); IMMATURE GRAN ABSOLUTE AUTO 0.02 K/mm3 (0.00-0.10); IMMATURE GRAN PERCENT AUTO 0 % (0-1); LYMPHOCYTES ABSOLUTE AUTO 1.34 K/mm3 (0.84-5.20); LYMPHOCYTES PERCENT AUTO 17 % (21-46); MONOCYTES ABSOLUTE AUTO 0.88 K/mm3 (0.16-1.47); MONOCYTES PERCENT AUTO 11 % (4-13); Mean Corpuscular HGB 28.2 pg (26.0-34.0); Mean Corpuscular HGB Conc 31.3 g/dL (31.5-36.5); Mean Corpuscular Volume 90 fL (80-100); Mean Platelet Volume 10.3 fL (9.1-12.4); NEUTROPHILS ABSOLUTE AUTO 3.34 K/mm3 (1.96-9.15); NEUTROPHILS PERCENT AUTO 42 % (41-73); Platelet Count 194 K/mm3 (150-400); RDW Coefficient Variation 13.7 % (11.7-14.2); RDW Standard Deviation 45.4 fL (35.1-46.3); Red Blood Cell Count 4.47 M/mm3 (4.30-5.90); White Blood Cell Count 7.94 K/mm3 (4.00-11.30)
[2019-02-19 00:17] LABS: Alanine Aminotransfer (ALT/SGP 24 U/L (12-78); Albumin, Blood 3.4 g/dL (3.4-5.0); Albumin/Globulin Ratio 1.1 (0.8-1.8); Alk Phos 75 U/L (50-136); Anion Gap 5 mmol/L (6-16); Aspartate Aminotrans (AST/SGOT 21 U/L (12-37); Bilirubin, Total 0.4 mg/dL (0.1-1.0); Blood Urea Nitrogen 11 mg/dL (8-24); Bun/Creatinine Ratio 16.1 (12.0-20.0); CO2, Blood 28 mmol/L (21-32); Calcium, Blood 8.4 mg/dL (8.5-10.1); Chloride, Blood 107 mmol/L (98-108); Creatinine, Blood 0.68 mg/dL (0.60-1.20); Glomerular Filtration Rate >60 (60-); Glucose, Blood 120 mg/dL (70-99); Sodium, Blood 140 mmol/L (136-145); Total Protein, Blood 6.4 g/dL (6.4-8.2); Troponin I <0.015 ng/mL (0.000-0.040)
[2019-02-19] MEDS ORDERED: SPIRIVA RESPIMAT4 GM PO (01:29)
[2019-02-19] MEDS ORDERED: Prednisone50 MG PO (01:29)
[2019-02-19] MEDS ORDERED: ALBU90OI INH (01:29)
[2019-02-19] MEDS ORDERED: CODEINE-GUAIFE120 ML PO (01:29)
[2019-02-19] MEDS ORDERED: Zithromax250 MG PO (01:29)
== END 2019-02-19 03:20 | disposition home or self-care (01) ==
LOC: ER 23:17
PROVIDERS: Emergency Medicine
DX: J44.0 Chronic obstructive pulmonary disease with (acute) lower respiratory infection (principal); J20.9 Acute bronchitis, unspecified; J44.1 Chronic obstructive pulmonary disease with (acute) exacerbation; J90 Pleural effusion, not elsewhere classified; I10 Essential (primary) hypertension; Z79.899 Other long term (current) drug therapy
CPT/HCPCS: 36415; 71260; 80047; 80053; 83880; 84484; 85014; 85025; 93005; 93010; 94640; 96365-59; 96375-59; 99285-25; J0456; J1100; J7050; Q9967

== ENCOUNTER → 2020-03-20 | Outpatient (CLI) | payer OTHER, MEDICARE ==
[~2020-03-20] MED LIST changes: +ASPIR 8181 M1 PO; +ATOR40TA PO; +CELE100 PO; +CODEINE-GUAIFE120 ML PO; +DULERA 100 MCG/13 GM INH; +LOSA50 PO; +MONT10T; +MONTELUKAST SODI1 GM; +Percocet 5-3251 EACH PO; +Prednisone20 MG PO; +Prednisone50 MG PO; +SPIRIVA RESPIMAT4 GM PO; +Zithromax250 MG PO
== END ==
LOC: LAB UCHC 10:37 → LAB SHORT 10:37
DX: R35.0 Frequency of micturition (principal)
CPT/HCPCS: 87086

== ENCOUNTER → 2020-05-13 | Outpatient (CLI) | payer OTHER, MEDICARE | LOC: LAB 18:47 → LAB SHORT 18:47 | DX: Z48.817 Encounter for surgical aftercare following surgery on the skin and subcutaneous tissue (principal); L08.9 Local infection of the skin and subcutaneous tissue, unspecified; Z48.02 Encounter for removal of sutures | CPT/HCPCS: 87070; 87077; 87147; 87186; 87205 ==

== ENCOUNTER 2020-05-21 06:15 | Day surgery (SDC) | payer OTHER, MEDICARE ==
[~2020-05-21] VITALS: Ht 175.3 cm; Wt 80.8 kg
[~2020-05-21 06:15] MED LIST changes: -ASPIR 8181 M1 PO; -ATOR40TA PO; -CELE100 PO; -DULERA 100 MCG/13 GM INH; -LOSA50 PO; -MONT10T; -Percocet 5-3251 EACH PO
[2020-05-21] MEDS ORDERED: ATOR40TA PO (06:40)
[2020-05-21] MEDS ORDERED: DULERA 100 MCG/13 GM INH (06:40)
[2020-05-21] MEDS ORDERED: CELE100 PO (06:40)
[2020-05-21] MEDS ORDERED: LOSA50 PO (06:41)
[2020-05-21] MEDS ORDERED: MONT10T (06:41)
--- NOTE | 2020-05-21 07:15 | NUR ---
Ambulatory in Day Surgery c , PT [facility] [place] [facility]. History, Chart, Medications and Allergies reviewed before start of procedure. Lungs clear T/O to Auscultation. Patient confirms NPO status and agrees with scheduled surgery. Patient reports completing Chlorhexadine shower X2 prior to admission to hospital.
--- NOTE | 2020-05-21 11:04 | NUR ---
PT ARRIVED TO UNIT FROM PACU AFTER APPROXIMATELY HALF HOUR ON FLOOR, PT ABLE TO WIGGLE TOES SLIGHTLY. DENIES PAIN. VSS. DRESSING TO RLE CDI. ADMINISTERED TXA PER ORDERS. CALL LIGHT IN REACH. PT SPEAKING ON PHONE AND EATING JELLO.
--- NOTE | 2020-05-21 18:48 | NUR ---
SUMMARY NO ACUTE CHANGES SINCE ARRIVING TO UNIT. PT WORKED WITH THERAPY. VOIDING. MEDICATED PER ORDERS FOR PAIN. RESTING WITH EYES CLOSED AT THIS TIME. IN RECLINER WITH LEGS ELEVATED AND POLAR PACK IN PLACE. CALL LIGHT IN REACH.
[2020-05-22 04:18] LABS: BASOPHILS ABSOLUTE AUTO 0.03 K/mm3 (0.00-0.23); BASOPHILS PERCENT AUTO 0 % (0-2); EOSINOPHILS ABSOLUTE AUTO 0.29 K/mm3 (0.00-0.68); EOSINOPHILS PERCENT AUTO 4 % (0-6); Hematocrit 37.6 % (37.0-53.0); Hemoglobin 12.4 g/dL (13.5-17.5); IMMATURE GRAN ABSOLUTE AUTO 0.02 K/mm3 (0.00-0.10); IMMATURE GRAN PERCENT AUTO 0 % (0-1); LYMPHOCYTES ABSOLUTE AUTO 1.31 K/mm3 (0.84-5.20); LYMPHOCYTES PERCENT AUTO 16 % (21-46); MONOCYTES ABSOLUTE AUTO 1.05 K/mm3 (0.16-1.47); MONOCYTES PERCENT AUTO 13 % (4-13); Mean Corpuscular HGB 29.1 pg (26.0-34.0); Mean Corpuscular Volume 88 fL (80-100); Mean Platelet Volume 10.5 fL (9.1-12.4); NEUTROPHILS ABSOLUTE AUTO 5.31 K/mm3 (1.96-9.15); NEUTROPHILS PERCENT AUTO 66 % (41-73); Platelet Count 151 K/mm3 (150-400); RDW Coefficient Variation 14.3 % (11.7-14.2); RDW Standard Deviation 45.7 fL (35.1-46.3); Red Blood Cell Count 4.26 M/mm3 (4.30-5.90); White Blood Cell Count 8.01 K/mm3 (4.00-11.30)
--- NOTE | 2020-05-22 04:30 | NUR ---
SHIFT SUMMARY POD1 R TKA. VSS. AOX4. PT REPORTS PAIN 1-5/ T/O SHIFT. PAIN MANAGED W/ TORADOL, TYLENOL AND OXY. PT WALKED ONCE BEFORE BEDTIME. TOLERATING IT WELL. R KNEE W/ ALEX WRAPPED AND POLAR PACK IN PLACED. PT DENIES NUMBNESS AND TINGLING SENSATION. PT SLEPT WELL AFTER MIDNIGHT. DENIES PASSING FLATUS. TOLERATING REG DIET DENIES NAUSEA AND VOMITING. CALL LIGHT WITHIN REACH.
[2020-05-22 04:35] LABS: Anion Gap 4 mmol/L (6-16); Blood Urea Nitrogen 15 mg/dL (8-24); Bun/Creatinine Ratio 20.3 (12.0-20.0); CO2, Blood 30 mmol/L (21-32); Calcium, Blood 8.6 mg/dL (8.5-10.1); Chloride, Blood 107 mmol/L (98-108); Creatinine, Blood 0.74 mg/dL (0.60-1.20); Glomerular Filtration Rate >60 (60-); Glucose, Blood 109 mg/dL (70-99); Potassium, Blood 4.6 mmol/L (3.5-5.5); Sodium, Blood 141 mmol/L (136-145)
[2020-05-22] MEDS ORDERED: Percocet 5-3251 EACH PO (09:58)
[2020-05-22] MEDS ORDERED: ASPIR 8181 M1 PO (09:58)
--- NOTE | 2020-05-22 11:11 | NUR ---
DISCHARGE SUMMARY PT ALERT AND ORIENTED. TOLERATED PHYSICAL THERAPY AND CLEARED TO GO HOME. DISCHARGE ORDERS OBTAINED FROM DR MUNOZ. MEDICATED PRN FOR PAIN. DISCHARGE EDUCATION GIVEN ON ACTIVITY, WOUND CARE, RX, FOLLOW UP APPOINTMENTS, AND WHEN TO CALL HIS SURGON. PT LEFT FACILY IN WHEELCHAIR AT 1040 WITH FAMILY MEMBER TO HOME. IV REMOVED PRIOR TO DISCHARGE.
--- NOTE | 2020-05-22 13:20 | NUR ---
05/22/20 1320 Papst,Benigno D VERIFICATION:CORRECTION OF IMPANT OUT DATE
== END 2020-05-22 10:45 | disposition home or self-care (01) ==
LOC: ORSCMMR 06:15 → ORD 07:30 → SURS 10:15 → ORD 12:15 → ORSCMMR 05-22 10:45
PROVIDERS: Orthopaedic Surgery
PROC: 8E0Y0CZ Robotic Assisted Procedure of Lower Extremity, Open Approach (ICD-10-PCS; principal; 2020-05-22)
PROC: 0SRC0JA Replacement of Right Knee Joint with Synthetic Substitute, Uncemented, Open Approach (ICD-10-PCS; principal; 2020-05-22)
DX: M17.11 Unilateral primary osteoarthritis, right knee (principal); I10 Essential (primary) hypertension; E78.5 Hyperlipidemia, unspecified; J44.9 Chronic obstructive pulmonary disease, unspecified; Z79.899 Other long term (current) drug therapy
CPT/HCPCS: 27447; S2900; 36415; 73560-RT; 80048; 85025; 88300; 94640; 94760; 97110; 97116; 97162; 97530; A9270; C1776; J0171; J0690; J0735; J1170; J1885; J2370; J2704; J2795; J3010; J7120

== ENCOUNTER 2021-04-17 09:19 | Day surgery (SDC) | payer OTHER, MEDICARE ==
[~2021-04-17] VITALS: Ht 172.7 cm; Wt 82.6 kg
[~2021-04-17 09:19] MED LIST changes: +ASPIR 8181 M1 PO; +ATOR40TA PO; +CELE100 PO; +DULERA 100 MCG/13 GM INH; +LOSA50 PO; +MONT10T; +Percocet 5-3251 EACH PO
[2021-04-17] MEDS ORDERED: CAPSAICIN60 G1 TOP (09:52)
[2021-04-17] MEDS ORDERED: POTA10T PO (09:52)
--- NOTE | 2021-04-17 10:02 | NUR ---
04/17/21 Mary Esteban TETRACAINE DROP INSTILLED AT 0946. ROMEOETT INSERTED AT 0948
== END 2021-04-17 11:42 | disposition home or self-care (01) ==
LOC: ORSCSDS 09:19
PROVIDERS: Ophthalmology
PROC: 08RK3JZ Replacement of Left Lens with Synthetic Substitute, Percutaneous Approach (ICD-10-PCS; principal; 2021-04-17 10:30)
DX: H25.12 Age-related nuclear cataract, left eye (principal); H21.81 Floppy iris syndrome; E78.2 Mixed hyperlipidemia; I10 Essential (primary) hypertension; I51.7 Cardiomegaly; M06.9 Rheumatoid arthritis, unspecified; J44.9 Chronic obstructive pulmonary disease, unspecified; Z87.891 Personal history of nicotine dependence; Z79.899 Other long term (current) drug therapy
CPT/HCPCS: J2001; J2250; J3010; J3301; J7040; V2632

== ENCOUNTER 2021-05-08 09:29 | Day surgery (SDC) | payer OTHER, MEDICARE ==
[~2021-05-08] VITALS: Ht 172.7 cm; Wt 83.0 kg
[~2021-05-08 09:29] MED LIST changes: +CAPSAICIN60 G1 TOP; +POTA10T PO
--- NOTE | 2021-05-08 09:55 | NUR ---
05/08/21 0955 Huber Ayala TETRACAINE IN RIGHT EYE PER ORDERS AT 0947 PLEDGET IN RIGHT EYE AT 0951
== END 2021-05-08 11:26 | disposition home or self-care (01) ==
LOC: ORSCSDS 09:29
PROVIDERS: Ophthalmology
PROC: 08RJ3JZ Replacement of Right Lens with Synthetic Substitute, Percutaneous Approach (ICD-10-PCS; principal; 2021-05-08 11:00)
DX: H25.11 Age-related nuclear cataract, right eye (principal); H21.81 Floppy iris syndrome; I10 Essential (primary) hypertension; J44.9 Chronic obstructive pulmonary disease, unspecified; Z87.891 Personal history of nicotine dependence; Z79.899 Other long term (current) drug therapy
CPT/HCPCS: J2001; J2250; J3010; J3301; J7040; V2632

== ENCOUNTER 2022-03-18 10:01 | Day surgery (SDC) | payer OTHER, MEDICARE ==
[~2022-03-18] VITALS: Ht 175.3 cm; Wt 83.1 kg
[2022-03-18 11:26] LABS: BASOPHILS ABSOLUTE AUTO 0.03 K/mm3 (0.00-0.23); BASOPHILS PERCENT AUTO 1 % (0-2); EOSINOPHILS ABSOLUTE AUTO 0.14 K/mm3 (0.00-0.68); EOSINOPHILS PERCENT AUTO 3 % (0-6); Hematocrit 43.4 % (37.0-53.0); Hemoglobin 14.4 g/dL (13.5-17.5); IMMATURE GRAN ABSOLUTE AUTO 0.02 K/mm3 (0.00-0.10); IMMATURE GRAN PERCENT AUTO 0 % (0-1); LYMPHOCYTES ABSOLUTE AUTO 1.49 K/mm3 (0.84-5.20); LYMPHOCYTES PERCENT AUTO 29 % (21-46); MONOCYTES ABSOLUTE AUTO 0.62 K/mm3 (0.16-1.47); MONOCYTES PERCENT AUTO 12 % (4-13); Mean Corpuscular HGB 29.3 pg (26.0-34.0); Mean Corpuscular HGB Conc 33.2 g/dL (31.5-36.5); Mean Corpuscular Volume 88 fL (80-100); Mean Platelet Volume 10.2 fL (9.1-12.4); NEUTROPHILS PERCENT AUTO 56 % (41-73); Platelet Count 178 K/mm3 (150-400); RDW Coefficient Variation 13.6 % (11.7-14.2); RDW Standard Deviation 44.3 fL (35.1-46.3); Red Blood Cell Count 4.91 M/mm3 (4.30-5.90)
--- NOTE | 2022-03-18 14:58 | NUR ---
Patient up to Ambulate independently. Gait steady. Discharge instructions reviewed with patient. Patient verbalizes understanding. Copy given to patient to take home. Discharged via wheelchair to private car for ride home.
== END 2022-03-18 23:06 | disposition home or self-care (01) ==
LOC: ORSCMMR 10:01
PROVIDERS: Surgery
PROC: 0YU60JZ Supplement Left Inguinal Region with Synthetic Substitute, Open Approach (ICD-10-PCS; principal; 2022-03-18 12:30)
DX: K40.30 Unilateral inguinal hernia, with obstruction, without gangrene, not specified as recurrent (principal); I10 Essential (primary) hypertension; J44.9 Chronic obstructive pulmonary disease, unspecified; Z79.899 Other long term (current) drug therapy
CPT/HCPCS: 36415; 85025; A9270; C1781; J0690; J1100; J1885; J2250; J2405; J2704; J2795; J3010; J7120

== ENCOUNTER → 2024-07-13 | Outpatient (CLI) | payer OTHER ==
[~2024-07-13] MED LIST changes: +ALBU8HFA2 INH; +ASPI81CH PO; +Crestor20 MG PO; +DICLOFENAC GEL TOP; +DILT180 PO; +ENTRESTO 24 MG1 EACH PO; +MONT10T PO; +OXYC10ER PO; +Spironolactone50 MG PO
== END ==
LOC: LAB SHORT 11:45 → LAB 11:45
DX: Z51.81 Encounter for therapeutic drug level monitoring (principal); Z79.899 Other long term (current) drug therapy

== ENCOUNTER → 2024-09-13 | Outpatient (CLI) | payer OTHER ==
[2024-09-18 10:25] LABS: 6-ACETYLMORPHINE, URN, QUANT <10 ng/mL; CODEINE, URN, QUANT <20 ng/mL; HYDROCODONE, URN, QUANT <20 ng/mL; HYDROMORPHONE, URN, QUANT <20 ng/mL; MORPHINE, URN, QUANT <20 ng/mL; NORHYDROCODONE, URN, QUANT <20 ng/mL; NOROXYCODONE, URN, QUANT >4000 ng/mL; NOROXYMORPHONE, URN, QUANT 39 ng/mL; OXYCODONE, URN, QUANT >4000 ng/mL; OXYMORPHONE, URN, QUANT 25 ng/mL
== END ==
LOC: LAB 17:20 → LAB SHORT 17:20
PROVIDERS: Physician Assistant
DX: Z79.891 Long term (current) use of opiate analgesic (principal)
CPT/HCPCS: G0480